=== PATIENT | male | born 1965 | race African-American/Black ===

== ENCOUNTER 2024-06-19 14:06 | Emergency (ER) | payer BC ==
[~2024-06-19] VITALS: Ht 177.8 cm; Wt 94.0 kg
[2024-06-19 14:08] VITALS: BP 173/90; PULSE 94; RESP 12; TEMP 98; O2SAT 99
== END 2024-06-19 15:49 | disposition left against medical advice (07) ==
LOC: ER 14:06
DX: M79.602 Pain in left arm (principal); Z53.21 Procedure and treatment not carried out due to patient leaving prior to being seen by health care provider